=== PATIENT | male | born 1955 | race Caucasian/White ===

== ENCOUNTER 2019-04-14 08:53 | Day surgery (SDC) | payer OTHER ==
[2019-04-13 12:07] VITALS: BMI 34.4
[~2019-04-14 08:53] MED LIST: LACTATED RINGERS 1,000 ML IV SCH
[2019-04-14 09:32] VITALS: TEMP 97.8
[2019-04-14] MEDS ORDERED: PROPOFOL 10 MG/ML 20 ML VIAL IV ONE (10:13)
--- NOTE | 2019-04-14 10:44 | P.PCN ---
Date of Procedure: 04/14/19 Description of Procedure: BRIEF HISTORY: Patient is a 63-year-old male who presents for outpatient colonoscopy for screening for malignant neoplasm the colon. Patient reports colon cancer in both his mother and father secondary to disease. Denies any change in bowel habits, blood per rectum or abdominal pain. Last colonoscopy approximately 4 years ago per his recollection. PROCEDURE PERFORMED: Colonoscopy aborted/failed with polypectomy secondary to poor prep. PREOPERATIVE DIAGNOSIS: Screening for malignant neoplasm of the colon, family history of colon cancer in both the patient's mother and father, last colonoscopy 4 years ago per patient recollection. ESTIMATED BLOOD LOSS: Minimal. IV sedation per Anesthesia. PROCEDURE: After informed consent was obtained, the patient, was brought into the endoscopy unit. IV sedation was administered by Anesthesia under continuous monitoring. Digital rectal examination was normal. Initially the Olympus CF-190 flexible video colonoscope was then inserted in the rectum, gradually advanced into sigmoid colon at which time the procedure was aborted due to a poor prep with a large amount of liquid and solid stool through the entire visualized colon prohibiting visualization of the mucosa. A few diminutive polyps were noted in the rectum and removed with cold forcep polypectomy. Retroflexion was performed in the rectum and no lesions were seen. The patient tolerated the procedure well. IMPRESSION: Poor prep with a large amount of solid and liquid stool noted. Failed/aborted colonoscopy secondary to poor prep. Diminutive rectal polyps removed with cold forcep polypectomy. RECOMMENDATIONS: Findings of this examination were discussed with the patient and his friend. Okay to resume diet. Okay to resume medications. Would recommend repeat colonoscopy in 3-6 months with a 2 day prep.
[2019-04-14 11:52] VITALS: BP 154/91; PULSE 69; RESP 20
== END 2019-04-14 11:16 | disposition home or self-care (01) ==
LOC: ORWHC2ENDO 08:53
PROVIDERS: ATTEND Internal Medicine
DX: Z12.11 Encounter for screening for malignant neoplasm of colon (principal); K62.1 Rectal polyp; I10 Essential (primary) hypertension; M10.9 Gout, unspecified; Z86.010 Personal history of colon polyps; Z80.0 Family history of malignant neoplasm of digestive organs; Z91.018 Allergy to other foods; Z79.1 Long term (current) use of non-steroidal anti-inflammatories (NSAID); Z79.899 Other long term (current) drug therapy; Z72.0 Tobacco use
CPT/HCPCS: 88305; 45331; J2704

== ENCOUNTER 2019-10-19 09:38 | Emergency (ER) | payer OTHER ==
[2019-10-19 09:43] VITALS: RESP 16; TEMP 98.2
[2019-10-19] MEDS ORDERED: KETOROLAC 30 MG/ML 1 ML VIAL IVP STA (09:58)
[2019-10-19] MEDS ORDERED: hydrALAZINE HCL 20 MG/ML 1 ML VIAL IVP STA (10:01)
--- NOTE | 2019-10-19 10:02 | ED ---
Extremity Problem HPI - General Chief complaint: Extremity Problem,Nontraumatic Stated complaint: gout Time Seen by Provider: 10/19/19 09:51 Source: patient, RN notes reviewed, old records reviewed Mode of arrival: wheelchair Limitations: no limitations - History of Present Illness Initial comments: This is a 64-year-old male who presents emergency Department today with 3 months of right hip pain. Patient reports that he believes that his pain is related to gout. He states is been having symptoms of right leg pain starting with his knee. He size primary care doctor the vomiting shot and steroid pack and he finished his last steroids a few weeks ago. He states that the pain seems to be recurrent but now into the right hip. Denies any fall or trauma. He states he was scheduled to have lab work and x-rays completed but felt the pain was more severe today decided to come to the ER. Patient has been taking naproxen for pain. Patient reports that he has been noncompliant with his blood pressure medications over the past few days. Parents emergency department hypertensive 198/100. Denies any symptoms of chest pain, shortness of breath or headache or visual changes. - Related Data Home Medications Medication Instructions Recorded Confirmed Loratadine [Claritin] 10 mg PO DAILY 04/13/19 10/19/19 Naproxen Sodium 1,100 mg PO ONCE PRN 04/13/19 10/19/19 Albuterol Inhaler [Ventolin Hfa 2 puff INHALATION RT-Q6H PRN 10/19/19 10/19/19 Inhaler] Allopurinol [Zyloprim] 300 mg PO DAILY 10/19/19 10/19/19 Budesonide-Formot 160-4.5 Mcg 2 puff INHALATION RT-BID 10/19/19 10/19/19 [Symbicort 160-4.5 Mcg Inhaler] Divalproex ER [Depakote ER] 250 mg PO BID 10/19/19 10/19/19 FLUoxetine HCL [PROzac] 20 mg PO DAILY 10/19/19 10/19/19 lisinopriL [Lisinopril] 30 mg PO DAILY 10/19/19 10/19/19 Previous Rx's Medication Instructions Recorded Acetaminophen with Codeine 1 tab PO Q4H PRN 3 Days #18 tab 10/19/19 [Tylenol w/codeine #3] Allergies Allergy/AdvReac Type Severity Reaction Status Date / Time soy Allergy gout Verified 10/19/19 10:33 Review of Systems ROS Statement: Those systems with pertinent positive or pertinent negative responses have been documented in the HPI. ROS Other: All systems not noted in ROS Statement are negative. Past Medical History Past Medical History: Hypertension Additional Past Medical History / Comment(s): gout,"[facility]'t afford [facility]" History of Any Multi-Drug Resistant Organisms: None Reported Additional Past Surgical History / Comment(s): colonoscopies Past Anesthesia/Blood Transfusion Reactions: No Reported Reaction Additional Past Anesthesia/Blood Transfusion Reaction / Comment(s): never has had general anesthesia Smoking Status: Current every day smoker Past Alcohol Use History: None Reported Past Drug Use History: None Reported - Past Family History Mother Family Medical History: Cancer Additional Family Medical History / Comment(s): colon Father Family Medical History: Cancer Additional Family Medical History / Comment(s): colon General Exam - General Exam Comments Initial Comments: Alert and oriented 64-year-old male. No significant distress. Limitations: no limitations General appearance: alert, in no apparent distress Head exam: Present: atraumatic, normocephalic, normal inspection Eye exam: Present: normal appearance, PERRL, EOMI. Absent: scleral icterus, conjunctival injection, periorbital swelling ENT exam: Present: normal exam, mucous membranes moist Neck exam: Present: normal inspection. Absent: tenderness, meningismus, lymphadenopathy Respiratory exam: Present: normal lung sounds bilaterally. Absent: respiratory distress, wheezes, rales, rhonchi, stridor Cardiovascular Exam: Present: regular rate, normal rhythm, normal heart sounds. Absent: systolic murmur, diastolic murmur, rubs, gallop, clicks GI/Abdominal exam: Present: soft, normal bowel sounds. Absent: distended, guarding, rebound, rigid Extremities exam: Present: normal inspection, full ROM, normal capillary refill. Absent: tenderness, pedal edema, joint swelling, calf tenderness Back exam: Present: normal inspection Neurological exam: Present: alert Psychiatric exam: Present: normal affect, normal mood Course Vital Signs 10/19/19 10/19/19 09:40 10:12 Temperature 98.2 F Pulse Rate 85 Respiratory 16 Rate Blood Pressure 198/85 185/101 O2 Sat by Pulse 98 Oximetry Medical Decision Making - Medical Decision Making 64-year-old male presents for short stay for complaints of right hip pain has been chronic 3 months in nature. He had if this was related to gout initially. At this time patient's labs review notes unremarkable. He did have outpatient lab orders for her doctor in a [place] which were completed today but discussed with Patient that these are send out. X-rays of the hip show evidence of bilateral AVM. Discussed this is likely due to his history of steroid use to treat frequent gout. I discussed Patient is follow-up with erp specialist. He's been taking ibuprofen high amounts and I discussed to minimize is ibuprofen will give the Patient a short course of pain medication in the meantime. Discussed the importance of following up with PCP in [place]. All questions were answered. - Lab Data Result diagrams: 10/19/19 10:23 10/19/19 10: Lab Results 10/19/19 10/19/19 Range/Units 10:23 10:23 WBC 10.3 (3.8-10.6) k/uL RBC 4.62 (4.30-5.90) m/uL Hgb 14.1 (13.0-17.5) gm/dL Hct 41.7 (39.0-53.0) % MCV 90.3 (80.0-100.0) fL MCH 30.5 (25.0-35.0) pg MCHC 33.8 (31.0-37.0) g/dL RDW 14.5 (11.5-15.5) % Plt Count 206 (150-450) k/uL Neutrophils % 74 % Lymphocytes % 16 % Monocytes % 7 % Eosinophils % 2 % Basophils % 0 % Neutrophils # 7.6 (1.3-7.7) k/uL Lymphocytes # 1.6 (1.0-4.8) k/uL Monocytes # 0.7 (0-1.0) k/uL Eosinophils # 0.2 (0-0.7) k/uL Basophils # 0.1 (0-0.2) k/uL Sodium 139 (137-145) mmol/L Potassium 3.7 (3.5-5.1) mmol/L Chloride 106 (98-107) mmol/L Carbon Dioxide 26 (22-30) mmol/L Anion Gap 7 mmol/L BUN 15 (9-20) mg/dL Creatinine 0.79 (0.66-1.25) mg/dL Est GFR (CKD-EPI)AfAm >90 (>60 ml/min/1.73 sqM) Est GFR (CKD-EPI)NonAf >90 (>60 ml/min/1.73 sqM) Glucose 112 H (74-99) mg/dL Calcium 9.4 (8.4-10.2) mg/dL - Radiology Data Radiology results: report reviewed 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 Disposition Clinical Impression: AVN of femur, Chronic right hip pain Disposition: HOME SELF-CARE Condition: Good Instructions (If sedation given, give patient instructions): Arthralgia (ED), Hip Dislocation (ED) Additional Instructions: Please use medication as discussed. Please follow up with family doctor if symptoms have not improved over the next two days. Please return to the emergency room if your symptoms increase or worsen or for any other concerns. Prescriptions: Acetaminophen with Codeine [Tylenol w/codeine #3] 1 tab PO Q4H PRN 3 Days #18 tab PRN Reason: Pain Is patient prescribed a controlled substance at d/c from ED?: No Referrals: [facility],Clinic [Family Provider] - 1-2 days Rufus Campbell MD [STAFF PHYSICIAN] - 1-2 days Time of Disposition: 11:40
[2019-10-19] MEDS ORDERED: HYDROcodone/APAP 5-325MG 1 EACH TAB PO STA (10:34)
[2019-10-19 10:56] LABS: African American GFR (CKD) >90 (>60 ml/min/1.73 sqM); Anion Gap 7 mmol/L; Blood Urea Nitrogen 15 mg/dL (9-20); Calcium 9.4 mg/dL (8.4-10.2); Carbon Dioxide 26 mmol/L (22-30); Chloride 106 mmol/L (98-107); Glucose 112 mg/dL (74-99); Non-African American GFR(CKD) >90 (>60 ml/min/1.73 sqM); Potassium 3.7 mmol/L (3.5-5.1); Sodium 139 mmol/L (137-145)
[2019-10-19 11:02] LABS: Basophils # (A) 0.1 k/uL (0-0.2); Basophils % (A) 0 %; Eosinophils # (A) 0.2 k/uL (0-0.7); Eosinophils % (A) 2 %; HCT 41.7 % (39.0-53.0); HGB 14.1 gm/dL (13.0-17.5); Lymphocytes # (A) 1.6 k/uL (1.0-4.8); Lymphocytes % (A) 16 %; MCH 30.5 pg (25.0-35.0); MCHC 33.8 g/dL (31.0-37.0); MCV 90.3 fL (80.0-100.0); Mean Platelet Volume 7.9; Monocytes # (A) 0.7 k/uL (0-1.0); Monocytes % (A) 7 %; Neutrophils # (A) 7.6 k/uL (1.3-7.7); Neutrophils % (A) 74 %; Platelet Count 206 k/uL (150-450); RBC 4.62 m/uL (4.30-5.90); RDW 14.5 % (11.5-15.5); WBC 10.3 k/uL (3.8-10.6)
--- NOTE | 2019-10-19 11:08 | XR ---
EXAMINATION TYPE: XR Hip RT and AP Pelvis DATE OF EXAM: 10/19/2019 COMPARISON: NONE HISTORY: Pelvic and right hip pain. TECHNIQUE: A single AP view of the pelvis is obtained. Two views of the right hip are obtained. FINDINGS: There is no acute fracture/dislocation evident in the pelvis. The sacroiliac joints appea r symmetric and unremarkable. Mild to moderate axial joint space loss in both hips. There is lucent l esion with sclerosis involving the superior aspect of the bilateral femoral heads consistent with und erlying avascular necrosis. Femoral head shapes are maintained bilaterally. No femoral bony collapse noted bilaterally. The overlying soft tissue appears unremarkable. Pubic symphysis is intact. IMPRESSION: There is bilateral avascular necrosis involving femoral heads in both hips.
[2019-10-19 12:11] VITALS: BP 180/75; PULSE 71
[2019-10-19 18:27] LABS: Rheumatoid Factor, Qnt 7 IU/mL (0-15)
[2019-10-20 15:56] LABS: ANA Pattern See Footnote
== END 2019-10-19 11:53 | disposition home or self-care (01) ==
LOC: EC 09:38
DX: M87.852 Other osteonecrosis, left femur (principal); M87.851 Other osteonecrosis, right femur; G89.29 Other chronic pain; I10 Essential (primary) hypertension; M10.9 Gout, unspecified; F17.200 Nicotine dependence, unspecified, uncomplicated; Z79.51 Long term (current) use of inhaled steroids; Z79.899 Other long term (current) drug therapy; Z91.018 Allergy to other foods; Z53.8 Procedure and treatment not carried out for other reasons
CPT/HCPCS: 36415; 80048; 85652; 85025; 86431; 86038; 86039; 73502; 99284; 96374; J0360; 84550